=== PATIENT | male | born 1995 | race American Indian/Alaskan Native ===

== ENCOUNTER 2017-07-01 23:59 | Emergency (ER) | payer OTHER ==
[2017-07-02] MEDS ORDERED: TORADOL IM ONE (05:55)
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
[2017-07-02 08:06] VITALS: BP 103/57
== END 2017-07-02 08:22 | disposition home or self-care (01) ==
LOC: ED 23:59
DX: S09.90XA Unspecified injury of head, initial encounter (principal); G44.309 Post-traumatic headache, unspecified, not intractable; M54.2 Cervicalgia; M54.5 Low back pain; V89.2XXA Person injured in unspecified motor-vehicle accident, traffic, initial encounter; Y93.89 Activity, other specified; Y99.8 Other external cause status; Y92.89 Other specified places as the place of occurrence of the external cause
CPT/HCPCS: 70450; 72100; 72125; 96372; 99284; J1885